=== PATIENT | male | born 1955 | race African-American/Black ===

== ENCOUNTER 2020-05-25 18:00 | Inpatient (IN) | payer OTHER ==
[~2020-05-25] VITALS: Ht 175.3 cm; Wt 148.1 kg
[2020-05-25 18:00] VITALS: BP 176/94
[2020-05-25 18:44] LABS: ABSOLUTE NEUTROPHILS 5.1 thou/uL (1.4-8.2); BASOPHILS 0.5 % (0.0-2.0); EOSINOPHILS 0.3 % (0.0-3.0); HEMATOCRIT 41.1 % (42.0-52.0); HEMOGLOBIN 13.4 gm/dL (14.0-18.0); LYMPHOCYTES 6.6 % (24.0-44.0); MCH 31.8 pg (26.0-34.0); MCHC 32.7 g/dL (28.0-37.0); MCV 97.2 fL (80.0-100.0); MONOCYTES 7.6 % (1.0-8.0); PLATELET COUNT 146 thou/uL (150-400); RBC 4.22 mil/uL (4.50-6.00); RDW 14.2 % (10.5-14.5)
[2020-05-25 18:44] LABS: HCO3 29.7 mmol/L (22.0-26.0); PCO2 53.9 mmHg (35.0-45.0); PO2 68.4 mmHg (80.0-100.0); pH 7.359 (7.360-7.450); sO2 92.7 % (92.0-98.0)
[2020-05-25 18:51] LABS: ANION GAP 7 mmol/L (7-16); BUN 29 mg/dL (7-18); CALCIUM 8.5 mg/dL (8.5-10.1); CHLORIDE 106 mmol/L (98-107); CO2 29 mmol/L (21-32); CREATININE 2.4 mg/dL (0.7-1.3); GLUCOSE 104 mg/dL (74-106); POTASSIUM 4.9 mmol/L (3.5-5.1); SODIUM 142 mmol/L (136-145)
[2020-05-25 19:01] LABS: ALBUMIN 2.9 g/dL (3.4-5.0); DIRECT BILIRUBIN < 0.1 mg/dL (<0.1-0.2); SGOT 24 U/L (15-37); SGPT 22 U/L (30-65); TOTAL BILIRUBIN 0.2 mg/dL (0.2-1.0); TOTAL PROTEIN 7.5 g/dL (6.4-8.2); TROPONIN-I <0.06 ng/mL (<0.06)
--- NOTE | 2020-05-25 19:14 | NUR ---
SPOKE WITH GUARDIAN (JORGE GOLDMAN) FROM [facility] AND OBTAINED PERMISSION TO TREAT IN THE EMERGENCY DEPARTMENT AND OBTAINED PERMISSION TO ADMIT INTO THE HOSPITAL. VERIFIED BY RODGER CHAO
[2020-05-25] MEDS ORDERED: CLONIDINE HCL0.1 MG PO (19:50)
[2020-05-25] MEDS ORDERED: CELEXA 20 MG TA20 MG PO (19:50)
[2020-05-25] MEDS ORDERED: FUROSEMIDE 40 M40 MG PO (19:50)
[2020-05-25] MEDS ORDERED: ZESTRIL40 MG PO (19:51)
[2020-05-25] MEDS ORDERED: GLIPIZIDE5 MG PO (19:51)
[2020-05-25] MEDS ORDERED: MULTI VITAMIN1 EACH PO (19:52)
[2020-05-25] MEDS ORDERED: LOPRESSOR50 MG PO (19:52)
[2020-05-25] MEDS ORDERED: OXYBUTYNIN 5 MG5 M2 PO (19:53)
[2020-05-25] MEDS ORDERED: FLOMAX0.4 MG PO (19:53)
[2020-05-25] MEDS ORDERED: POTASSIUM20 PO (19:53)
[2020-05-25] MEDS ORDERED: OMEPRAZOLE 20 M20 M1 PO (19:53)
[2020-05-25] MEDS ORDERED: VITAMIN C500 M2 PO (19:54)
[2020-05-25] MEDS ORDERED: DEPAKOTE ER500 M1 PO (19:54)
[2020-05-25] MEDS ORDERED: INGREZZA40 MG PO (19:54)
[2020-05-25] MEDS ORDERED: ZOCOR 10 MG TAB10 MG PO (19:55)
[2020-05-25] MEDS ORDERED: OLANZAPINE15 M1 PO (19:55)
[2020-05-25] MEDS ORDERED: MILK OF MA400 MG/5 M PO (19:55)
[2020-05-25] MEDS ORDERED: ACETAMINOPHEN650 M5 PO (19:56)
[2020-05-25] MEDS ORDERED: HALDOL DEC100 MG/1 M IM (19:57)
[2020-05-26 03:59] LABS: HEMATOCRIT 41.9 % (42.0-52.0); HEMOGLOBIN 13.4 gm/dL (14.0-18.0); MCH 31.4 pg (26.0-34.0); MCHC 32.1 g/dL (28.0-37.0); MCV 97.9 fL (80.0-100.0); RBC 4.28 mil/uL (4.50-6.00); RDW 14.7 % (10.5-14.5); WBC 5.8 thou/uL (4.0-11.0)
[2020-05-26 04:47] LABS: CALCIUM 8.7 mg/dL (8.5-10.1); CREATININE 2.4 mg/dL (0.7-1.3); POTASSIUM 5.1 mmol/L (3.5-5.1)
[2020-05-26 05:04] LABS: CHOLESTEROL 188 mg/dL (<200); HDL CHOLESTEROL 55 mg/dL (>40); LDL CHOLESTEROL 119 mg/dL (<100); TC:HDL 3.4 Ratio (Not establshd); TRIGLYCERIDE 72 mg/dL (<150); VLDL 14 mg/dL (<40)
[2020-05-26 05:15] LABS: SERUM ASSESSMENT Clear
--- NOTE | 2020-05-26 09:20 | EKG ---
[facility] [place] [address] ELECTROCARDIOGRAM REPORT Name: JANETHWillard Room #: 170- ADM IN M.R.#: [id number] Admission: 05/25/20 Attend Phys: Regine Duenas MD Discharge: Date of : 59 Report #: [id number] THIS REPORT FOR: cc: Mark James MD, Dennis R MD Lundgren,John Brown MD [facility] ~ THIS REPORT FOR: //name// [facility] ED Test Date: 2020-05-25 Test Time: 18:21:24 Pat Name: Willard FOWLER Department: Room: [facility] Gender: M [employer]: MARY JANE : 1955 Requested By: Spencer Ordonez Order Number: [id number] MD: John Villalba Measurements Intervals [place] Rate: 76 P: MO: QRS: -29 QRSD: 97 T: -7 QT: 425 QTc: 478 Interpretive Statements Sinus rhythm Nonspecific ST and T wave abnormality Borderline prolonged QT interval Compared to ECG 06/12/2009 22:08:01 Atrial fibrillation no longer present Electronically Signed On 05-26-2020 9:20:45 CDT by John Villalba [email or web address] <ELECTRONICALLY SIGNED> By: John Villalba MD, [facility] 05/26/20 09 182 20 John Villalba MD, [facility] /EPI
[2020-05-26 15:15] VITALS: BP 179/102
[2020-05-26 15:20] VITALS: BP 199/103
[2020-05-26 17:34] VITALS: BP 146/104
--- NOTE | 2020-05-26 18:23 | NUR ---
VSS-LOW GRADE TEMPERATURE OF 100.4, MEDICATED WITH PO TYLENOL. 4LNC IN PLACE, COURSE LUNG SOUNDS IN ALL LOU BILATERALLY. ALERT AND ORIENTED X 4, BUT DIFFICULT TO UNDERSTAND DUE TO MUMBLES SPEECH. FALL PRECAUTIONS IN PLACE.
[2020-05-26 20:00] VITALS: BP 162/95
[2020-05-27 05:36] LABS: BE(vivo) 0.1 mmol/L (-2 to +3); HCO3 28.1 mmol/L (22.0-26.0); PCO2 60.4 mmHg (35.0-45.0); PO2 57.9 mmHg (80.0-100.0); sO2 86.2 % (92.0-98.0)
[2020-05-27 05:37] LABS: pH 7.286 (7.360-7.450)
[2020-05-27 06:21] LABS: HEMATOCRIT 41.6 % (42.0-52.0); HEMOGLOBIN 13.5 gm/dL (14.0-18.0); MCH 31.7 pg (26.0-34.0); MCHC 32.4 g/dL (28.0-37.0); MCV 97.9 fL (80.0-100.0); RBC 4.25 mil/uL (4.50-6.00); RDW 14.2 % (10.5-14.5); WBC 5.5 thou/uL (4.0-11.0)
[2020-05-27 06:56] LABS: CALCIUM 8.5 mg/dL (8.5-10.1); CREATININE 2.6 mg/dL (0.7-1.3); MAGNESIUM 2.2 mg/dL (1.8-2.4); POTASSIUM 4.7 mmol/L (3.5-5.1)
[2020-05-27 09:07] VITALS: BP 174/95
[2020-05-27 11:17] VITALS: BP 200/108
[2020-05-27 15:51] LABS: BE(vivo) 0.2 mmol/L (-2 to +3); HCO3 25.2 mmol/L (22.0-26.0); PCO2 42.2 mmHg (35.0-45.0); PO2 64.5 mmHg (80.0-100.0); pH 7.394 (7.360-7.450); sO2 92.5 % (92.0-98.0)
[2020-05-27 16:37] VITALS: BP 155/117
--- NOTE | 2020-05-27 16:40 | NUR ---
PT ON BIPAP THIS SHIFT AND BREATHING BETTER. WILL PLACE ON NC SO PT CAN EAT DINNER. SANTIAGO PLACED AND DRAINING CLEAR URINE. WILL CONTINUE TO ASSESS.
[2020-05-27 19:35] VITALS: BP 151/114
[2020-05-27 21:21] LABS: ABSOLUTE NEUTROPHILS 8.7 thou/uL (1.4-8.2); BASOPHILS 0.5 % (0.0-2.0); HEMATOCRIT 43.6 % (42.0-52.0); HEMOGLOBIN 14.5 gm/dL (14.0-18.0); MCH 31.9 pg (26.0-34.0); MCHC 33.1 g/dL (28.0-37.0); MCV 96.1 fL (80.0-100.0); MONOCYTES 7.9 % (1.0-8.0); PLATELET COUNT 143 thou/uL (150-400); POLYS 85.6 % (36.0-66.0); RBC 4.54 mil/uL (4.50-6.00); RDW 14.5 % (10.5-14.5); WBC 10.2 thou/uL (4.0-11.0)
[2020-05-28 01:06] VITALS: BP 164/89
--- NOTE | 2020-05-28 03:31 | NUR ---
RECEIVED PT AROUND 0200 FROM REGINALDO SOARES. PT IS SLEEPING QUIETLY. NO S/S DISTRESS. HE REFUSED HID BIPAP AND IS ON 4lnc. LUNGS SOUND DIMINISHED. UNLABORED ON 4LNC. NO S/S DISTRESS PRESENTLY. WILL CONTINUE TO MONITOR PT FOR CHNAGES.
[2020-05-28 04:24] VITALS: BP 175/94
--- NOTE | 2020-05-28 04:54 | HC ---
[facility] [place] [address] CONSULTATION Name: Willard FOWLER Room #: 349-I ADM IN [place].Amos.#: [id number] Admission: 05/25/20 Attend Phys: Zachary Maki MD Discharge: Date of : 59 Report #: [id number] THIS REPORT FOR: cc: Mark James MD, Dennis R MD Barry, Joseph W. MD ~ CC: Mark Maki DATE OF SERVICE: 05/27/2020 INFECTIOUS DISEASE CONSULTATION ATTENDING PHYSICIAN: Dr. Maki. REASON FOR EVALUATION: COVID-19 infection. HISTORY OF PRESENT ILLNESS: Chart reviewed, patient examined. This is a 64-year-old gentleman with a fairly profound disability; I believe he has paranoid schizophrenia as well as other medical diseases who is a resident of a facility, was found to be increasingly dyspneic and checked saturation was in the mid 80s and that prompted transfer, was confirmed to have positive COVID testing. He is now in isolation. Really cannot give me any details of his history, it is uncertain his baseline. Initial ABGs on 6 liters showed a pO2 of 68.4, lactic acid was normal at 0.5. Procalcitonin was 0.12. Chest x-ray showed borderline cardiomegaly with no acute abnormalities. He did note to have some low-grade temperature elevation to 100.4 overnight. He is afebrile this morning. Blood cultures have been collected, they are sterile thus far. He was started initially on azithromycin and ceftriaxone, as well as methylprednisolone. ALLERGIES: Listed tuberculin skin test. CURRENT MEDICATIONS: Include guaifenesin, atorvastatin, subcutaneous heparin, divalproex, ascorbic acid, pantoprazole, ceftriaxone, tamsulosin, clonidine, metoprolol, citalopram, methylprednisolone, azithromycin, and olanzapine. PAST MEDICAL HISTORY: As described above, paranoid schizophrenia, history of dyslipidemia, hypertension, morbid obesity, atrial fibrillation in the past. SOCIAL HISTORY: Smokes cigarettes. Unknown. Suspect of ethanol or illicit drug use. FAMILY HISTORY: Noncontributory. REVIEW OF SYSTEMS: Unobtainable. [facility] [address] [place] [address] CONSULTATION Name: Willard FOWLER Room #: 349-I [facility] IN [facility]#: [id number] Admission: 05/25/20 Attend Phys: Zachary Maki MD Discharge: Date of : 59 Report #: [id number] PHYSICAL EXAMINATION: GENERAL: He barely arouses. He does say a couple of words, maintained on supplemental oxygen at 6 liters, appears to be reasonably well nourished. VITAL SIGNS: Temperature this morning 98.4, pulse 59, respirations 18, blood pressure 174/95. SKIN: Warm, dry. HEENT: He has got a large tongue and prominent facial features. NECK: Thick. LUNGS: Diminished breath sounds. Few scattered coarse sounds. HEART: Distant, regular, occasional ectopy. I do not appreciate a murmur. ABDOMEN: Obese, soft. There are no elicitable tenderness, no peritoneal signs. GENITOURINARY AND RECTAL: Deferred. LABORATORY DATA: ____. ASSESSMENT: COVID-19 infection, complicated by respiratory failure, appears to be a very difficult situation. It is difficult to ascertain any sort of what his baseline may be. At this point, I am in favor of continuing empiric antimicrobial therapy including the corticosteroids. At this point, the imaging does not suggest a progressive pneumonitis, may be a candidate for remdesivir if he would worsen. It is not clear how he would be getting nutrition at this point either. We will have to monitor that expectantly. I suspect he has got a degree of risk for aspiration as well. <ELECTRONICALLY SIGNED> By: Saad Magana MD 05/28/20 0454 [id number] 1119 Saad Magana MD /nt
[2020-05-28 05:39] LABS: BE(vivo) -0.6 mmol/L (-2 to +3); HCO3 25.3 mmol/L (22.0-26.0); PCO2 46.4 mmHg (35.0-45.0); PO2 68.3 mmHg (80.0-100.0); pH 7.355 (7.360-7.450); sO2 92.8 % (92.0-98.0)
[2020-05-28 07:39] LABS: HEMATOCRIT 43.2 % (42.0-52.0); MCH 31.3 pg (26.0-34.0); MCHC 32.3 g/dL (28.0-37.0); RBC 4.46 mil/uL (4.50-6.00); RDW 14.8 % (10.5-14.5); WBC 10.1 thou/uL (4.0-11.0)
[2020-05-28 07:47] LABS: CALCIUM 8.4 mg/dL (8.5-10.1); CREATININE 2.9 mg/dL (0.7-1.3); MAGNESIUM 2.2 mg/dL (1.8-2.4); POTASSIUM 4.5 mmol/L (3.5-5.1)
[2020-05-28 08:05] VITALS: BP 187/98
--- NOTE | 2020-05-28 09:24 | NUR ---
CLARIFICATION PT WAS ON 7 LNC LAST NIGHT AND TITRATED TO 6LNC PER PET TRAINING INSTRUCTOR RT. NOTIFIED DAY SHIFT RT OF ABG RESULTS AND CALLED THEM TO WILDA VÁZQUEZ NP.
[2020-05-28 11:46] VITALS: BP 177/97
[2020-05-28 12:56] LABS: URINE BILIRUBIN NEGATIVE (Negative); URINE BLOOD 2+ (Negative); URINE CLARITY CLEAR; URINE COLOR YELLOW; URINE GLUCOSE-RANDOM* NEGATIVE (Negative); URINE KETONES NEGATIVE (Negative); URINE LEUKOCYTES NEGATIVE (Negative); URINE NITRITE NEGATIVE (Negative); URINE PROTEIN (DIPSTICK) 3+ (Negative); URINE SPECIFIC GRAVITY 1.025 (1.005-1.035); URINE UROBILINOGEN 0.2 E.U./dl (0.2-1.0)
[2020-05-28 12:58] LABS: SQUAMOUS 0-3 Few /LPF (0-3)
[2020-05-28 12:59] LABS: BACTERIA 1-9 Few /HPF (None Seen); CASTS None Seen /LPF (None Seen); CRYSTALS None Seen /LPF (None Seen); URINE RBC 3-10 Few /HPF (0-2); URINE WBC 6-15 Few /HPF (0-5)
[2020-05-28 13:04] LABS: URINE CREATININE-RANDOM* 68.5 mg/dL; URINE PROTEIN-RANDOM* 486.3 mg/dL (<11.9)
[2020-05-28 16:09] VITALS: BP 188/93
--- NOTE | 2020-05-28 19:39 | NUR ---
PT HAS BEEN REFUSING CARE THIS SHIFT, REFUSING BLOOD DRAWS, REFUSING REQUEST TO USE THE BIPAP, WELL REFUSING TURNS. PATIENT IS ALERT ENOUGH TO USE THE CALL LIGHT TO REQUEST FOR FOOD AND OTHER ITEMS, BUT PT IS NOT ALERT ENOUGH TO RECALL THAT PT HAS TESTED FOR POSITIVE AND HAS BEEN TELLING MEDICAL STAFF OTHERWISE. ALL CARE THAT COULD BE PROVIDED HAS BEEN PROVIDED FOR THE PT. RN ATTEMPTED TO REINFORCE EDUCATION, THOUGH IT IS OBSCURE DUE TO CURRENT MENTATION STATUS. PT HAS BEEN KEEPING THE 6L/NC ON THIS SHIFT. NO OTHER CONCERNS FROM THE PT AT THIS TIME WILL CONTINUE TO MONITOR AND UPDATE NEEDED
[2020-05-28 19:55] VITALS: BP 144/80
--- NOTE | 2020-05-28 22:11 | NUR ---
PT SITTING UPRIGHT IN BED WATCHING TV. PT STATED HE DOES NOT PLAN ON DRINKING WATER HE PREFERS SODA, BOTH PROVIDED. SNACK PROVIDED. PT REMINDED TO LEAVE HIS NC O2 IN PLACE. PT COMPLIANT WITH VS ASSES AND MEDS. SCDS ON. PT HAS LOOSE COUGH LUNGS WITH WHEEZES. PT IS OBESE BLE EDEMA. SANTIAGO TO DD. PTS SPEECH IS MUMBLED AT TIMES AND NOT CLEAR. GOOD EYE CONTACT, BLUNTED AFFECT.
--- NOTE | 2020-05-29 02:11 | NUR ---
PT CONTINUES TO DECLINE REPOSITIONING. O2 PER NC INTACT.
[2020-05-29 04:25] VITALS: BP 183/92
--- NOTE | 2020-05-29 05:48 | NUR ---
PT CONTINUES TO REFUSE REPOSITIONING OR MONITORING FOR BM. PT COMPLIANT WTIH O2 AND MEDS.
[2020-05-29 06:25] VITALS: BP 177/90
[2020-05-29 07:02] LABS: ALBUMIN 2.1 g/dL (3.4-5.0); CALCIUM 7.8 mg/dL (8.5-10.1); CREATININE 2.9 mg/dL (0.7-1.3); PHOSPHORUS 4.4 mg/dL (2.5-4.9); POTASSIUM 4.5 mmol/L (3.5-5.1)
[2020-05-29 08:34] VITALS: BP 176/93
[2020-05-29 12:18] VITALS: BP 178/89
--- NOTE | 2020-05-29 13:14 | NUR ---
PATIENT O2 SAT DROPPING TO 86-88% ON 6LNC. RT INCREASED O2 FLOW TO 9LNC AND O2 SAT STILL 88-89%. RT HAD ENCOURAGED PATIENT TO USE BIPAP ORDERED AND PATIENT REFUSING. ENCOURAGED DEEP BREATHING, O2 SAT REMAINS 89%. CALLED DR. HARTLEY TO MAKE AWARE PATIENT REFUSING TREATMENT. PYSCH CONSULT ORDERED TO EVALUATE PATIENTS CAPACITY TO MAKE HIS OWN MEDICAL DECISIONS.
[2020-05-29 15:51] VITALS: BP 144/99
--- NOTE | 2020-05-29 16:12 | NUR ---
INITIAL ASSESSMENT: Received consult. ANGELICA reviewed chart and spoke with nursing and attending physician. Pt was admitted from [facility] due to respiratory failure. Pt placed in Enhanced Isolation due to COVID-19. Pt has had two positive tests since admission (05/25 and 05/26). Pt with low grade fever. Requiring 6L of O2 and IV abx/IV steroids. Pt with hx of paranoid schizophrenia and is a mayberry of the state through the [facility] Public Form Carpenter's Office. Consent to treat was obtained upon admission. ANGELICA contacted Jovanny Art with the [place] office today to provide update. Clinical info faxed to the [place] office for review. Plan is for pt to return to [facility] when medically stable. data processing systems project planner to fax clinical updates to [facility] for review. ANGELICA spoke with Brandt Longoria, to provide update. ANGELICA is following to assist as needed with discharge planning.
--- NOTE | 2020-05-29 16:20 | NUR ---
FAXED CLINICAL UPDATE TO [facility] RECEIVED CONFIRMATION AND LEFT MSG WITH ELIZABETH RICKETTS). DP TO FOLLOW.
[2020-05-29 19:51] VITALS: BP 189/99
[2020-05-30] VITALS (7 sets, daily range): BP systolic 162–187; BP diastolic 85–95
[2020-05-30 06:16] LABS: ABSOLUTE NEUTROPHILS 6.5 thou/uL (1.4-8.2); BASOPHILS 0.5 % (0.0-2.0); HEMATOCRIT 43.3 % (42.0-52.0); LYMPHOCYTES 7.5 % (24.0-44.0); MCH 31.4 pg (26.0-34.0); MCHC 32.3 g/dL (28.0-37.0); MCV 97.3 fL (80.0-100.0); MONOCYTES 7.7 % (1.0-8.0); PLATELET COUNT 137 thou/uL (150-400); POLYS 84.3 % (36.0-66.0); RBC 4.45 mil/uL (4.50-6.00); RDW 14.5 % (10.5-14.5); WBC 7.7 thou/uL (4.0-11.0)
[2020-05-30 06:24] LABS: PROTIME 9.4 Seconds (9.3-11.4)
[2020-05-30 06:35] LABS: CALCIUM 7.7 mg/dL (8.5-10.1); CREATININE 2.7 mg/dL (0.7-1.3); POTASSIUM 4.6 mmol/L (3.5-5.1); TOTAL BILIRUBIN 0.2 mg/dL (0.2-1.0); TOTAL PROTEIN 6.5 g/dL (6.4-8.2)
--- NOTE | 2020-05-30 06:50 | NUR ---
Assumed pt care at 1900.A/OX3 with confusion noted. Denies pain on assessment. Pt's BP elevated at beginning of shift,treated per EMAR with some relief noted. Pt hesitant to reposition in bed. C/o hunger a lot,snacks&coke provided to pt and satsified. Pt on Vapotherm with sats in the mid 90's. SCDs in place.SR on telemetry. Fall precautions in place,calls approp for help.
--- NOTE | 2020-05-30 13:13 | NUR ---
ANGELICA reviewed chart and spoke with nursing and attending physician. Pt is in Enhanced Isolation due to COVID-19. Pt is requiring bipap support. Pt is febrile and on IV abx. Psych consulted due to pt's non-compliance with bipap and treatment. Medications being adjusted: increase Zyprexa and adding PRN Haldol. Psych discussed case wit pt's legal guardian. ANGELICA updated SHIMON Carlton at [facility]. ANGELICA is following to assist as needed with discharge planning.
--- NOTE | 2020-05-30 20:07 | NUR ---
ASSUMED PATIENT CARE THIS MORNING AT APPROXIMATELY 0700. PATIENT AWAKE AND ORIENTED TO SELF, LETHARGIC BUT EASILY AROUSABLE THROUGHOUT THE SHIFT. TOLERATING MEALS. PATIENT REMAINS ON SAME OXYGEN LEVEL THROUGHOUT THIS SHIFT. O2 SAT REMAINED GREATER THAN 92% ON VAPOTHERM CANNULA. PATIENT CONTINUES TO REFUSE TO USE BIPAP MASK THIS SHIFT. SEEN BY DOLORES GONZALES. CHANGES MADE TO MEDS. NO ACUTE EPISODES OF AGIATION THIS SHIFT. ELEVATED BLOOD PRESSURE THROUGHOUT SHIFT. MD AWARE. IV PRN HYDRALIZINE GIVEN X2 AND NEW PO MED STARTED. CLONIDINE PATCH REMAINS IN PLACE TO RIGHT ARM. PATIENT ABLE TO HAVE LARGE BM THIS SHIFT. TOLERATED TURNING AND PERICARE WITHOUT ANY DESAT.
[2020-05-31] VITALS (7 sets, daily range): BP systolic 164–190; BP diastolic 86–104
[2020-05-31 06:21] LABS: HEMATOCRIT 42.3 % (42.0-52.0); HEMOGLOBIN 13.7 gm/dL (14.0-18.0); MCH 31.4 pg (26.0-34.0); MCHC 32.4 g/dL (28.0-37.0); MCV 97.1 fL (80.0-100.0); RBC 4.36 mil/uL (4.50-6.00); RDW 14.2 % (10.5-14.5); WBC 7.6 thou/uL (4.0-11.0)
[2020-05-31 06:32] LABS: CALCIUM 7.8 mg/dL (8.5-10.1); CREATININE 2.7 mg/dL (0.7-1.3); POTASSIUM 4.8 mmol/L (3.5-5.1)
--- NOTE | 2020-05-31 06:33 | NUR ---
Assumed pt care at 1900. Pt's A/OX2,able to make needs known. Denies pain on assessment,VSS,afebrile. Pt transfered to room 350 approx midnight;d/t non use of BIPAP. Pt on vapotherm/NC with sats in the lower 90's, no distress noted. Pt has a vera to DD draining light yellow urine. Fall precautions in place on LAC SL. SCDs in place. Pt declined to be repositioned. Resting quietly w/o any distress at this time.
[2020-05-31 15:07] LABS: HIV ANTIBODY Non Reactive (Non Reactive)
--- NOTE | 2020-05-31 15:56 | NUR ---
ANGELICA reviewed chart and spoke with nursing and attending physician. Pt in Enhanced Isolation due to COVID-19. Pt is afebrile and requiring bipap support. Pt is on IV abx. ANGELICA faxed clinical updated to [facility] for review. Spoke with RN at [facility] to provide update. Pt will need repeat COVID test prior to discharge. ANGELICA updated Jovanny Art with the [facility] Public Irs Agent's Office. Plan is for pt to return to [facility] when medically stable. ANGELICA is following to assist as needed with discharge planning.
--- NOTE | 2020-05-31 16:16 | NUR ---
ASSUMED CARE AT SHIFT CHANGE, ALERT AND ORIENTED 2-3,COOPERATIVE AND DENIES ANY DISOCMFORT. BP 164/92, AND SCHEDULED MEDS GIVEN. BP REMAINS ELEVATED, MEDS ADJUSTED BY MOLDED GOODS INSPECTOR TRIMMER. REMAINS ON HIGH O2, AND SATS 89-92%. WILL CONTINUE WITH POC.
[2020-06-01 04:15] VITALS: BP 160/81
[2020-06-01 06:57] LABS: CALCIUM 7.9 mg/dL (8.5-10.1); CREATININE 2.6 mg/dL (0.7-1.3); PHOSPHORUS 4.6 mg/dL (2.5-4.9); POTASSIUM 4.4 mmol/L (3.5-5.1)
--- NOTE | 2020-06-01 07:20 | NUR ---
ASSUMED PT CARE AROUND 1930. RECEIVED AWAKE IN BED. AXOX2. HYTERTENSION MANAGED PER DOCTORATE OF CHIROPRACTIC. HIGH FLOW NC MANAGED PER RT PROTOCOL. SANTIAGO INTACT. NO S/S ACUTE DISTRESS NOTED OR REPORTED AT THIS TIME. CARE TRANFERRED TO AM RN AT THIS TIME.
[2020-06-01 07:50] VITALS: BP 157/77
--- NOTE | 2020-06-01 09:48 | NUR ---
Nutrition: Assessed due to LOS. Admit: respiratory failure, COVID+ with bilateral pulmonary infiltrates, and encephalopathy now improved. Hx: a fib, HTN, schizophrenia. He is on high flow O2, with BIPAP support as needed. Plans to go to SNF soon once medically stable. Phoned pt's room as unable to visit d/t isolation status. Pt did not answer. Noted to be A&O x2-3 at times w/ past EMR mention of pt being unable to give much hx. Chart reviewed for nutrition details. On a heart healthy diet, eating well at least 3/4 of the time. Mostly consumes 60-100% of meals, but on occasion may only eat 20% of a meal. Overall meal average= 62% per the last 8 meals from 05/28-05/31. Recent BM 05/31. Suspect pt's appetite will continue to increase as respiratory status improves. CBW 353#, with morbid obesity. No immediate nutrition needs identified given overall sufficient intake most meals. Keep as low nutrition risk.
--- NOTE | 2020-06-01 11:49 | NUR ---
ANGELICA reviewed chart and spoke with nursing and attending physician. Pt is in Enhanced Isolation due to COVID-19. Pt is afebrile and on hi flow O2. Pt is on IV abx. ANGELICA provided update to Jovanny Art at the [facility] Public Seafood Preparer's office. ANGELICA discussed possible LTAC referral, should pt need LTAC level of care prior to returning to [facility]. Per Jovanny, he gives consent for referral to LTAC: [facility] or [facility]. Both who accept COVID positive pts. Awaiting input from [facility] liaison. ANGELICA contacted attending physician to determine discharge timeframe and if pt would need LTAC level of care upon discharge. ANGELICA is following to assist as needed with discharge planning.
[2020-06-01 12:00] VITALS: BP 163/85
[2020-06-01 15:30] VITALS: BP 183/86
--- NOTE | 2020-06-01 16:21 | NUR ---
PT CARE ASSUMED AT 0700, PT ALERT TO SELF, ABLE TO FOLLOW COMMANDS. PT DENIES NAUSEA, VOMITING AND CHEST PAIN. PT IS ON HIGH FLOW, SOB WITH EXERTION, NO DISTRESS NOTED OTHERISE. SANTIAGO IN PLACE AND PATENT. CALL LIGHT AND TABLE WITH REACH. BED AT LOWEST LEVEL WITH ALARM ON.
[2020-06-01 19:30] VITALS: BP 168/75
[2020-06-02] VITALS (8 sets, daily range): BP systolic 156–192; BP diastolic 73–106
--- NOTE | 2020-06-02 07:49 | NUR ---
RESTED WELL THROUGHOUT HOURLY ROUNDS SAT 90-92 % NSR WITH 8 BEAT VT , MARY CALDWELL NOTIFED ORDER FOR BMP AND MAG THIS AM.
[2020-06-02 08:54] LABS: CALCIUM 8.2 mg/dL (8.5-10.1); CREATININE 2.4 mg/dL (0.7-1.3); MAGNESIUM 2.9 mg/dL (1.8-2.4); POTASSIUM 4.4 mmol/L (3.5-5.1)
--- NOTE | 2020-06-02 10:56 | NUR ---
ANGELICA reviewed chart and spoke with nursing and attending physician. Pt remains in Enhanced Isolation due to COVID-19. Pt with low grade fever and is on IV abx. Pt is on high flow O2. No weekend discharge planned SW discussed LTAC referral with attending physician, as pt may benefit from LTAC level of care prior to returning to [facility]. Pt may be ready for discharge to LTAC early next week. ANGELICA discussed with Jovanny Art with [facility] Public Ladies Suit Operator's Office, who is agreeable with plan. ANGELICA spoke with SHIMON Carlton at [facility] to provide update. ANGELICA is following to assist as needed with discharge planning.
--- NOTE | 2020-06-02 13:56 | NUR ---
PT CARE ASSUMED AT 0700, PT ALERT AND ORIENTED X3, PT DENIES CHEST PAIN, NAUSEA AND VOMITING. PT IS ON HIGHFLOW, 45L, NO SIGNS OF DISTRESS NOTED. SOB WITH EXERTION. PT DENIES ANY PAIN. PT REFUSES TO TURN, EDUCATION REINFORCED. CALL LIGHT AND TABLE WITHIN REACH, BED AT LOWEST LEVEL WITH ALARM ON.WILL CONTINUE TO MONITOR.
--- NOTE | 2020-06-02 19:26 | NUR ---
1900 ASSUMED CARE OF PT AFTER REPORT, 1914 BASELINE ASSESSMENT COMPLETED, PT RESTING IN BED ORIENTED X 3, NO COMPLAINTS AT THIS TIME, IVS INFUSING WITHOUT DIFFICULTY FALL PRECAUTIONS IN PLACE. PT REFUSES SCDS
--- NOTE | 2020-06-02 20:08 | NUR ---
1900 assumed care of pt, 1945 baseline assessment completed, hi gideon oxygen in place o2 sat 90 % on 45l resp unlabored at 22, pt denies soa, denies pain or discomfort, oriented to person and hospital but not which one. scds in place fall precautions in place, pt on continuous o2 and cardiac monitoring, will continue to monitor
[2020-06-03] VITALS (7 sets, daily range): BP systolic 136–185; BP diastolic 77–95
[2020-06-03 06:06] LABS: ADENOVIRUS Negative (Negative); INFLUENZA A Negative (Negative); INFLUENZA B Negative (Negative); METAPNEUMOVIRUS Negative (Negative); PARAINFLUENZA 1 Negative (Negative); PARAINFLUENZA 2 Negative (Negative); PARAINFLUENZA 3 Negative (Negative); RHINOVIRUS Negative (Negative); RSV A Negative (Negative); RSV B Negative (Negative)
[2020-06-03 10:53] LABS: CALCIUM 8.1 mg/dL (8.5-10.1); CREATININE 2.5 mg/dL (0.7-1.3); POTASSIUM 4.8 mmol/L (3.5-5.1)
--- NOTE | 2020-06-03 14:04 | NUR ---
PT CARE ASSUMED AT 0700, PT ALERT AND ORIENTED X3, DENIES CHEST PAIN, NAUSEA AND VOMITTING. PT IS ON OPTIFLOW, FIO2 50, SEEMS MORE SOB TODR. YEFRI POWERS AWARE XRAY ORDERED. NO THER DISTRESS NOTED. SANTIAGO IN AND PATENT. CALL LIGHT AND TABLE WITHIN REACH. BED AT LOWEST LEVEL WITH ALARM ON.
--- NOTE | 2020-06-03 20:06 | NUR ---
1900 ASSUMED CARE OF PT AFTER REPORT. 1944 BASELINE ASSESSMENT COMPLETED PT IS MUCH MORE LETHARGIC THIS SHIFT, WITH LABORED RESPIRATIONS AT 20, PT ORIENTED TO SELF ONLY, AND AWAKENS AT VOICE, FOLLOWS COMMANDS. POSITION CHANGED FOR EASIER RESPIRATIONS AND PT ENCOURAGED TO COUGH AND DEEP BREATHE, LUNGS AR COARSE IN BUL WITH CRACKLES AT BILAT BASES, PT UNABLE TO PRODUCE SPUTUM. BP REMAINS ELEVATED BY IMPROVED FROM PREV SHIFT, URINE OUTPUT IS ADEQUATE, SCDS IN PLACE, FALL PRECAUTIONS IN PLACE WILL CONTINUE TO MONITOR
[2020-06-03 22:43] LABS: BE(vivo) -0.8 mmol/L (-2 to +3); HCO3 25.3 mmol/L (22.0-26.0); PCO2 47.2 mmHg (35.0-45.0); PO2 73.6 mmHg (80.0-100.0); pH 7.347 (7.360-7.450)
[2020-06-04] VITALS (7 sets, daily range): BP systolic 133–182; BP diastolic 70–91
[2020-06-04 05:41] LABS: BE(vivo) -2.7 mmol/L (-2 to +3); HCO3 23.5 mmol/L (22.0-26.0); PCO2 45.9 mmHg (35.0-45.0); PO2 85.4 mmHg (80.0-100.0); sO2 95.8 % (92.0-98.0)
[2020-06-04 05:42] LABS: pH 7.327 (7.360-7.450)
--- NOTE | 2020-06-04 08:19 | HC ---
[facility] [place] [address] CONSULTATION Name: Willard FOWLER Room #: [facility]- ADM IN M.R.#: [id number] Admission: 05/25/20 Attend Phys: Zachary Maki MD Discharge: Date of : 59 Report #: [id number] THIS REPORT FOR: cc: Mark James MD,Mark Augustine,Sahil Barajas MD ~ CC: Mark Maki CARDIOLOGY CONSULTATION INDICATION: Uncontrolled hypertension. HISTORY OF PRESENT ILLNESS: This is a 64-year-old gentleman with a history of morbid obesity, paranoid schizophrenia, hypertension, hypercholesterolemia, edema, paroxysmal atrial fibrillation, and transferred from [place] with increased shortness of breath. He was diagnosed with pneumonia attributed to COVID-19. During his stay, he has been treated with antibiotics and steroids. He did undergo pulmonary evaluation who recommended BiPAP, he initially refused. They suspect underlying obstructive sleep apnea, but has not been assessed. He has been experiencing elevated blood pressure with a systolic blood pressure greater than 180 mmHg for the past several days. The patient denies any chest pain or palpitations. He does have dyspnea attributed to his pneumonia. ALLERGIES: Include TUBERCULIN PPD. MEDICATIONS: Include atorvastatin 10 mg at night, ceftriaxone, clonidine patch 0.3 mg, Depakote, Haldol, heparin subQ, Toprol-XL 50 mg daily, Norvasc 5 mg. PAST MEDICAL HISTORY: Paranoid schizophrenia, morbid obesity, hypertension, paroxysmal atrial fibrillation, pneumonia. SOCIAL HISTORY: Resides at [facility]. Negative for tobacco use. FAMILY HISTORY: Unknown. REVIEW OF SYSTEMS: A full 10-point review of systems performed. Only the pertinent positives and negatives are described in the HPI. PHYSICAL EXAMINATION: VITAL SIGNS: Blood pressure is 185/95, heart rate is 180 beats per minute. GENERAL APPEARANCE: An obese male, in no acute distress. HEENT: Normocephalic, atraumatic. NECK: Supple. LUNGS: Diminished breath sounds at the bases. CARDIAC: Distant heart sounds, S1, S2 positive. ABDOMEN: Protuberant, soft. [facility] [address] [place] [address] CONSULTATION Name: JANETHWillard Room #: 350-P [facility] IN .R.#: [id number] Admission: 05/25/20 Attend Phys: Zachary Maki MD Discharge: Date of : 59 Report #: [id number] EXTREMITIES: No cyanosis, positive edema. Telemetry reveals sinus tachycardia. LABORATORY VALUES: Sodium is 147, BUN is 56, creatinine is 2.4, peak creatinine was 2.9. ASSESSMENT AND PLAN: 1. Uncontrolled hypertension. The patient has been in the hospital for over a week, has presented with uncontrolled hypertension, which has not been adequately controlled. The plan is to continue with the clonidine patch. We will change the beta saloni from metoprolol to Coreg. Amlodipine has been added. Suspect that increase fluid retention from steroid contributing. However, his sodium is increased. We would not start a diuretic at this time. We will initiate hydralazine 3 times a day. 2. Respiratory failure/pneumonia/COVID-19, continue with treatment as per Pulmonary. 3. History of paroxysmal atrial fibrillation, remains in sinus rhythm. 4. Chronic renal insufficiency, may benefit from nephrology evaluation as his electrolytes are abnormal; specifically, hypernatremia and rising BUN/creatinine. 5. Hyperlipidemia, tolerating statin therapy, no history of myalgias. <ELECTRONICALLY SIGNED> By: Sahil Augustine MD 06/04/20818 7 1021 Sahil Augustine MD /nt
[2020-06-04 08:32] LABS: ABSOLUTE NEUTROPHILS 7.7 thou/uL (1.4-8.2); BASOPHILS 0.4 % (0.0-2.0); EOSINOPHILS 1.1 % (0.0-3.0); HEMATOCRIT 39.7 % (42.0-52.0); HEMOGLOBIN 12.7 gm/dL (14.0-18.0); LYMPHOCYTES 5.4 % (24.0-44.0); MCH 31.3 pg (26.0-34.0); MCV 97.8 fL (80.0-100.0); MONOCYTES 3.6 % (1.0-8.0); PLATELET COUNT 145 thou/uL (150-400); POLYS 89.5 % (36.0-66.0); RBC 4.06 mil/uL (4.50-6.00); RDW 14.7 % (10.5-14.5); WBC 8.6 thou/uL (4.0-11.0)
[2020-06-04 08:44] LABS: ALBUMIN 1.7 g/dL (3.4-5.0); CALCIUM 8.3 mg/dL (8.5-10.1); CREATININE 2.8 mg/dL (0.7-1.3); TOTAL BILIRUBIN 0.2 mg/dL (0.2-1.0); TOTAL PROTEIN 6.4 g/dL (6.4-8.2)
--- NOTE | 2020-06-04 19:37 | NUR ---
ASSUMED CARE OF PT AT 0700. BIPAP IN PLACE, PT REMOVED SEVERAL TIMES WITH SATS IN >88% SANTIAGO CATHETER IN PLACE. REFUSED TURNS. PT CONFUSED BUT OPENS EYES TO VERBAL STIMULI. FALL PRECAUTIONS IN PLACE AND NURSING WILL CONTINUE TO MONITOR. FALL PRECAUTIONS IN PLACE AND NURSING WILL CONTINUE TO MONITOR.
[2020-06-05] VITALS (20 sets, daily range): BP systolic 117–209; BP diastolic 49–107
[2020-06-05 05:38] LABS: HEMATOCRIT 38.4 % (42.0-52.0); HEMOGLOBIN 12.3 gm/dL (14.0-18.0); MCH 31.5 pg (26.0-34.0); MCV 98.4 fL (80.0-100.0); PLATELET COUNT 176 thou/uL (150-400); WBC 7.5 thou/uL (4.0-11.0)
[2020-06-05 05:56] LABS: ALBUMIN 1.6 g/dL (3.4-5.0); CALCIUM 8.8 mg/dL (8.5-10.1); POTASSIUM 5.2 mmol/L (3.5-5.1); TOTAL BILIRUBIN 0.3 mg/dL (0.2-1.0); TOTAL PROTEIN 6.4 g/dL (6.4-8.2)
--- NOTE | 2020-06-05 07:35 | HC ---
[facility] [place] [address] CONSULTATION Name: Willard FOWLER Room #: 350- ADM IN M.R.#: [id number] Admission: 05/25/20 Attend Phys: Zachary Maki MD Discharge: Date of : 59 Report #: [id number] THIS REPORT FOR: cc: Mark James MD, Dennis R MD Al-Absi,Ildefonso Albarran MD ~ CC: Mark Maki REASON FOR THE CONSULTATION: Elevated creatinine. REASON FOR THE PRESENTATION: Sent from his nursing facility because of hypoxemia. HISTORY OF PRESENT ILLNESS: Obtained from the medical chart. The patient is really not able to provide me with any details. He is a COVID-19 positive patient. He was found to be hypoxemic in his nursing facility and was sent to our Emergency Room where he was found to have a creatinine value of 2.4 that had risen up to 2.6. We really do not have any prior creatinine values on this patient except in 2008. It does look like that his creatinine in [address] up to 6 and had settled at around 1.0. Details of those events in 2008 are not available in the medical records. I was consulted to manage the patient's acute kidney injury, chronic kidney disease. He carries a diagnosis of hypertension and hyperlipidemia. He also carries a diagnosis of AFib. Listed amongst his outpatient medications, lisinopril, metoprolol, glipizide. PAST MEDICAL HISTORY: 1. Hypertension. 2. Hyperlipidemia. 3. AFib. 4. Unknown chronic kidney disease status. 5. Post-appendectomy. 6. Paranoid schizophrenia. MEDICATIONS: Obtained from his nursing facility records: 1. Celexa. 2. Lasix. 3. Glipizide. 4. Lisinopril. 5. Metoprolol. 6. Olanzapine. ALLERGIES: PPD is listed as an allergy. REVIEW OF SYSTEMS: Unobtainable. FAMILY HISTORY: Unobtainable given the patient's current mental status. [facility] [address] [place] [address] CONSULTATION Name: JANETHWillard Room #: [facility].#: [id number] Admission: 05/25/20 Attend Phys: Zachary Maki MD Discharge: Date of : 59 Report #: [id number] SOCIAL HISTORY: Unobtainable given the patient's current mental status, but he came from a nursing facility. PHYSICAL EXAMINATION: GENERAL: He seems to be confused. VITAL SIGNS: Blood pressure is 160/95, temperature 38, respiratory rate 16. HEAD AND NECK: No jugular venous distention. CHEST: Decreased air entry bilaterally. CARDIOVASCULAR: No rub. ABDOMEN: Soft, nontender. EXTREMITIES: Lower extremities: No edema. LABORATORY VALUES: From today revealed a sodium of 144, potassium 4.7, chloride of 109, BUN of 33, creatinine of 2.6. White blood cell count is 5.5, platelet is 134. ASSESSMENT, IMPRESSION AND PLAN: 1. Unknown baseline creatinine. 2. Elevated creatinine. 3. COVID-19 positive patient. 4. Continue with IV fluid. 5. Workup for an elevated creatinine. 6. Monitor urine output. 7. Insert a Preciado catheter. 8. Strict input and output. 9. Avoid nephrotoxins. 10. Try to obtain his most recent creatinine value from his nursing facility. <ELECTRONICALLY SIGNED> By: Ildefonso Rea MD 06/05/20 0735 [id number] Ildefonso Rea MD /nt
--- NOTE | 2020-06-05 07:37 | NUR ---
PT LYING IN BED. DENIES PAIN. ESTING COMFORTABLY. NO NEEDS VOICED. CALL LIGHT WITHIN REACH. FREQUENT OBSERVATION.
--- NOTE | 2020-06-05 10:49 | NUR ---
ASSUMED CARE FOR THE PT FOR THE FIRST TIME THIS SHIFT, UPON ARRIVAL PT WAS AT 88% O2 SAT WITH THE HIGH FLOW NASAL CANULA, PT WAS PLACED ON BIPAP AND IS CURENTLY AT 93% WITH ITS USAGE. PT COMPLAINED OF BEING UNCOMFORTABLE IN THE BIPAP BUT WAS EDUCATED BY THE RN ABOUT THE BENEFIT OF USAGE AND NEED FOR THE DEVICE GIVEN THE CURRENT VITAL SIGN PRESENTATION. PT VERBALIZED UNDERSTANDING AND IS CONTINUING WITH THE USAGE. PT HAD BREAKFAST THIS AM, PT WAS ABLE TO EAT 60% OF THE FOOD. NO SPECIFIC CONCERNS FROM THE PT AT THIS TIME. PT AGREED TO BEING TURNED Q2H AND HAS BEEN MAINTAINED. WILL CONTINUE TO UPDATE NEEDED
[2020-06-05 11:13] LABS: BE(vivo) -1.5 mmol/L (-2 to +3); HCO3 26.7 mmol/L (22.0-26.0); PO2 79.2 mmHg (80.0-100.0); pH 7.259 (7.360-7.450); sO2 93.6 % (92.0-98.0)
--- NOTE | 2020-06-05 13:23 | NUR ---
ANGELICA reviewed chart and spoke with nursing and attending physician. Pt in Enhanced Isolation due to COVID-19. Pt's repeat test on 06/03 was positive. Pt is afebrile and requiring bipap support. Pt is on IV abx/IV Lasix. ANGELICA faxed clinical updates and repeat COVID test results to Denise at [facility] for review. ANGELICA notiifed that pt will transfer to ICU when a room is available. ANGELICA updated [facility] liaison. ANGELICA contacted Joavnny Art with the [facility] [employer] [facility]'s office to notify of transfer and to provide update. Update provided to PROTOTYPE MACHINE OPERATOR CM. ANGELICA is following to assist as needed with discharge planning.
[2020-06-05 13:56] LABS: ABSOLUTE NEUTROPHILS 6.9 thou/uL (1.4-8.2); PLATELET ESTIMATE NORMAL
--- NOTE | 2020-06-05 15:01 | NUR ---
Pt TRANSFERRED TO ICU. WILL PLACE ON HOLD AND AWAIT NEW ORDERS WHEN APPROPRIATE
[2020-06-05 15:38] LABS: T-SPOT.TB Negative
--- NOTE | 2020-06-05 15:52 | NUR ---
1450- PT ARRIVED VIA BED WITH 3 STAFF MEMBERS. PT ARRIVED ON BIPAP. PT CONNECTED TO SALVAGE WINDER AND HR 72 SR ON MONITOR SPO2 99%. UPON TRANSFERRING PT TO BED, IT WAS NOTICED THAT PT HAD OPEN SORES TO POSTERIOR SIDE OF SCROTUM. SCROTUM IS VERY EDEMATOUS. SHORTLY UPON ARRIVAL PT HAD VERY LARGE LOOSE STOOL. PT WAS TURNED AND CLEANED, BARRIER CREAM APPLIED, NEW LINEN PLACED UNDER PT. WOUND PICTURES TAKEN AT THIS TIME OF SCROTAL WOUNDS WELL R HEEL WOUND. PICTURES PLACED ON CHART. WOUND RN CONSULTED. WOUNDS ARE CURRENTLY OPEN TO AIR.
[2020-06-06] VITALS (29 sets, daily range): BP systolic 155–206; BP diastolic 76–129
[2020-06-06 06:01] LABS: ABSOLUTE NEUTROPHILS 7.3 thou/uL (1.4-8.2); BASOPHILS 0.3 % (0.0-2.0); EOSINOPHILS 3.3 % (0.0-3.0); HEMATOCRIT 38.1 % (42.0-52.0); HEMOGLOBIN 12.3 gm/dL (14.0-18.0); LYMPHOCYTES 5.7 % (24.0-44.0); MCHC 32.2 g/dL (28.0-37.0); MCV 99.2 fL (80.0-100.0); MONOCYTES 6.2 % (1.0-8.0); PLATELET COUNT 195 thou/uL (150-400); POLYS 84.5 % (36.0-66.0); RBC 3.84 mil/uL (4.50-6.00); WBC 8.7 thou/uL (4.0-11.0)
[2020-06-06 06:28] LABS: INR 1.1; PROTIME 10.9 Seconds (9.3-11.4)
[2020-06-06 06:43] LABS: ALBUMIN 1.7 g/dL (3.4-5.0); CALCIUM 8.6 mg/dL (8.5-10.1); CREATININE 3.2 mg/dL (0.7-1.3); POTASSIUM 4.9 mmol/L (3.5-5.1); TOTAL BILIRUBIN 0.2 mg/dL (0.2-1.0); TOTAL PROTEIN 6.5 g/dL (6.4-8.2)
--- NOTE | 2020-06-06 14:22 | NUR ---
WOUND CONSULT; SCROTUM ABRASIONS NOTED WITH A SMALL AMOUNT SEROSANGINOUS DRAINAGE. TENDER. THE RIGHT HEEL HAS A CALLOUSED AREA. THE PATIENT IS ALERT. RECOMMENDATIONS; 1-ZGUARD TO SCROTUM BID/PRN
--- NOTE | 2020-06-06 19:29 | NUR ---
1899-RECEIVED REPORT ON PATIENT. ASSUMED CARE. 1919-SPOKE WITH DR MARQUEZ VIA PHONE REGARDING PLAN OF CARE FOR THE PATIENT. DR MARQUEZ SPOKE WITH THE [facility] PUBLIC [employer]ARD[employer] ABOUT MAKING PATIENT DNR/NO CODE AND PROVIDING COMFORT CARE. DR MARQUEZ CALLED TO UPDATE THIS NURSE REGARDING THESE ORDERS. RECEIVED ORDERS FOR MORPHINE AND ATIVAN AT THIS TIME.
--- NOTE | 2020-06-06 20:00 | NUR ---
ASSESSMENT DOCUMENTED. PT HYPERTENSIVE. PO MEDS NOT GIVEN R/T PT RR STATUS AND BIPAP. PRN IVP GIVEN PER EMAR. DR. HARTLEY NOTIFIED AND NEW ORDERS GIVEN PER ORDER HX. HOSPICE CONSULTED R/T PT POOR PROGNOSIS. DR. MARQUEZ DISCUSSED WITH PT. DR. MARQUEZ [facility]. DNR ORDERS GIVEN. PT RESTIMG IN BED WITH CALL LIGHT IN REACH. WILL CONTINUE TO MONITOR.
[2020-06-07] VITALS (14 sets, daily range): BP systolic 146–189; BP diastolic 83–102
[2020-06-07 06:59] LABS: ALBUMIN 1.6 g/dL (3.4-5.0); CALCIUM 8.3 mg/dL (8.5-10.1); CREATININE 3.1 mg/dL (0.7-1.3); POTASSIUM 4.6 mmol/L (3.5-5.1)
--- NOTE | 2020-06-07 09:00 | NUR ---
PT. RESTING WITH EYES CLOSED, AROUSED TO VERBAL- LOUD STIMULI, CONFUSED OVERALL. REINFORCED THE USE OF BIPAP, DOES REACH FOR MASK BUT NOT PULLING OFF AT THIS TIME. EDEMATOUS SCROTUM 2+ UP ON SIDES OF LEG AREA NOTED AND ELEVATED ON A WASH CLOTH AT THIS TIME, APPEARS UNCOMFORTABLE WHEN MOVED TO THIS AREA. GAVE MSO4- FOR SUCH AND RESPIRATORY RATE DID COME DOWEN FROM 50'S TO 30'S WITH SUCH POST INTERVENTION WELL HYDRALZINE PUSH GIVEN AND BP RESPONDED WELL FROM 180/90 TO 140/72 NOW. TURNED PT. FOR CLEANING OF BACK AND CHECK FOR BM. NONE AT PRESENT. WILL CONTINUE TO MONITOR.
--- NOTE | 2020-06-07 12:29 | NUR ---
PT. IS FURTHER DETERIORATING TODAY FROM STAFF INSIGHT WHO HAD HIM PRIOR. PULMONARY ROUNDED ON PT. AND STATED COMFORT CARE TODAY AND THEN EXTUBATE ONCE HE IS COMFORTABLE, TITRATE GTT NEEDED FOR COMFORT. PT. TOOK HIS BIPAP OFF FOR 3 MINUTES AND SATURATIONS IN THE 40% RANGE, UP TO LOW 80'S NOW. WILL LET PHARMACY KNOW OF NEW MORPHINE GTT ORDER NOW.
--- NOTE | 2020-06-07 13:31 | NUR ---
DR. LANGSTON ORDERED A MORPHINE GTT AND COMFORT CARE FOR TITRATION TO SUCH THIS AFTERNOON.
--- NOTE | 2020-06-07 14:20 | NUR ---
NO MSO4 GTT HAS ARRIVED OF YET WILL CALL PHARMACY TO GET A STATUS ON SUCH UPDATE. PT. MEDICATED WITH 4MG OF MORPHINE HE WAS RESTLESS AND APPEARED AGITATED OVERALL, UNCOMFORTABLE FACIAL GRIMACING WAS SEVERE. WILL CONTINUE TO MONITOR OXYGEN SATURATION'S NOW AT 85% ON BIPAP.
--- NOTE | 2020-06-07 19:02 | NUR ---
1800-PT TAKEN OF BIPAP AND PLACED ON NASAL CANNULA AT THIS TIME, MSO4 GTT ON 10ML /HR AT THIS TIME. SO SIGN'S OF DISCOMFORT, OXYGEN SATURATIONS LOW 50'S NOW, WILL CONTINUE TO MONITOR.
--- NOTE | 2020-06-07 19:04 | NUR ---
TIME OF CALLED 18:46 PM WITH TWO RN'S AT [facility]ESIDE. CALLED [facility] FOR REFERRAL.
--- NOTE | 2020-06-07 19:15 | NUR ---
CALLED GERRI NARAYANAN [facility] AT THIS TIME TO NOTFY OF PT.S ROSEMARY FRAZIER. [facility] CALLED WELL REFERAL NUMBER GIVEN.
== END 2020-06-07 20:03 | DRG 177 ==
LOC: ER 18:00 → EDBD 18:00 → EROBS 19:25 → 3W 19:25 → ICU 06-05 14:39
PROVIDERS: Emergency Medicine; Hospitalist; Internal Medicine Nephrology; Nurse Practitioner Family; Pediatrics; Specialist; ADMIT Internal Medicine; ATTEND Internal Medicine
PROC: 5A09357 Assistance with Respiratory Ventilation, Less than 24 Consecutive Hours, Continuous Positive Airway Pressure (ICD-10-PCS; principal; 2020-06-03)
PROC: 5A09457 Assistance with Respiratory Ventilation, 24-96 Consecutive Hours, Continuous Positive Airway Pressure (ICD-10-PCS; 2020-06-05)
PROC: 02HV33Z Insertion of Infusion Device into Superior Vena Cava, Percutaneous Approach (ICD-10-PCS; 2020-06-06)
PROC: 30233K1 Transfusion of Nonautologous Frozen Plasma into Peripheral Vein, Percutaneous Approach (ICD-10-PCS; 2020-06-06)
DX: U07.1 COVID-19 (principal); J12.89 Other viral pneumonia; G92 Toxic encephalopathy; J96.21 Acute and chronic respiratory failure with hypoxia; J96.22 Acute and chronic respiratory failure with hypercapnia; N17.0 Acute kidney failure with tubular necrosis; F20.0 Paranoid schizophrenia; E44.0 Moderate protein-calorie malnutrition; E87.0 Hyperosmolality and hypernatremia; Z68.42 Body mass index [BMI] 45.0-49.9, adult; E78.5 Hyperlipidemia, unspecified; N18.9 Chronic kidney disease, unspecified; E66.01 Morbid (severe) obesity due to excess calories; I48.0 Paroxysmal atrial fibrillation; I16.0 Hypertensive urgency; Z51.5 Encounter for palliative care; G47.33 Obstructive sleep apnea (adult) (pediatric); I12.9 Hypertensive chronic kidney disease with stage 1 through stage 4 chronic kidney disease, or unspecified chronic kidney disease; B99.8 Other infectious disease; E87.5 Hyperkalemia; Z66 Do not resuscitate; Z90.49 Acquired absence of other specified parts of digestive tract; Z88.8 Allergy status to other drugs, medicaments and biological substances; Z79.899 Other long term (current) drug therapy
CPT/HCPCS: 10078; 10879